=== PATIENT | female | born 1980 | race Hispanic/Latino ===

== ENCOUNTER 2019-07-27 08:25 | Outpatient (CLI) | payer OTHER | END 2019-07-27 08:26 | disposition home or self-care (01) | LOC: LABHHL 08:25 | PROVIDERS: ATTEND Surgery | DX: N63.0 Unspecified lump in unspecified breast (principal) | CPT/HCPCS: 88305 ==

== ENCOUNTER 2019-10-16 08:00 | Observation (INO) | payer BC ==
[2019-10-18] MEDS ORDERED: fentaNYL 100 MCG/2 ML INJ IV ONE (06:30)
[2019-10-18] MEDS ORDERED: LACTATED RINGERS 1,000 ML IV SCH ×2 (06:30→14:00)
[2019-10-18] MEDS ORDERED: ACETAMINOPHEN 500 MG TAB PO NR (06:30)
[2019-10-18] MEDS ORDERED: MAGNESIUM OXIDE 400 MG TAB PO NR (06:30)
[2019-10-18] MEDS ORDERED: CELECOXIB 200 MG CAP PO NR (06:30)
[2019-10-18] MEDS ORDERED: GABAPENTIN 300 MG CAP PO NR (06:30)
[2019-10-18] MEDS ORDERED: MIDAZOLAM 2 MG/2 ML INJ IV NR (06:30)
[2019-10-18] MEDS ORDERED: BUPIVACAINE-EPINEPHRINE/PF 0.25%-1:200,000 (30 ML) VIAL INFILTRATI ONE (07:08)
[2019-10-18] MEDS ORDERED: ceFAZolin/Water 2 GM/20 ML 2 GM/20 ML SYRINGE IV NR (07:10)
[2019-10-18] MEDS ORDERED: MIDAZOLAM 2 MG/2 ML INJ ONE (07:17)
[2019-10-18] MEDS ORDERED: ceFAZolin 1 GM VIAL IV ONE ×2 (09:13)
[2019-10-18] MEDS ORDERED: BACITRACIN 50,000 UNIT VIAL IR ONE ×2 (09:14)
[2019-10-18] MEDS ORDERED: GENTAMICIN 40 MG/ML VIAL 2 ML IV ONE (09:15)
[2019-10-18] MEDS ORDERED: WATER FOR IRRIG STERILE 1,500 ML BOTTLE IR ONE (09:22)
[2019-10-18] MEDS ORDERED: SODIUM CHLORIDE 0.9% IRR 1,500 ML BOTTLE IR ONE (09:22)
[2019-10-18] MEDS ORDERED: HYDROmorphone 2 MG TAB PO PRN (13:27)
[2019-10-18] MEDS ORDERED: METOCLOPRAMIDE 10 MG TAB PO PRN (13:27)
[2019-10-18] MEDS ORDERED: ONDANSETRON 4 MG/2 ML INJ IV PRN ×2 (13:27→15:34)
[2019-10-18] MEDS ORDERED: ACETAMINOPHEN 325 MG TAB PO PRN (13:27)
[2019-10-18] MEDS ORDERED: diphenhydrAMINE 25 MG CAP PO PRN (13:27)
[2019-10-18] MEDS ORDERED: oxyCODONE /ACETAMINOPHEN 5-325MG TAB PO PRN (13:27)
--- NOTE | 2019-10-18 13:27 | Operative Report ---
Operative Report Operative Report: Operative Report: Date of Service: October 18, 2019 Preoperative diagnosis: KAREEN positive gene mutation Postoperative diagnosis: Same Procedure: Bilateral nipple sparing mastectomy Surgeon: Lacey Griffiths M.D. Construction Recruiter: Norma Francisco D.O. Anesthesia: Gen. Findings: Bilateral nipple sparing mastectomy Complications: None Drains: per Plastic Surgery Estimated blood loss: 150 cc Disposition: Plastic surgery proceeded with bilateral implant placement Indications for operative procedure: This is a 39-year-old lady with KAREEN positive gene mutation with lifetime breast cancer risk up to 52%. She met with genetic counselor as well. Recommendations were to proceed with prophylactic bilateral mastectomy to decrease her breast cancer risk. She wished to proceed with immediate bilateral implant placement by plastic surgery. She wished to proceed with the above procedure. Procedure in detail: Anesthesia placed bilateral pectoral muscle block. The patient was taken to the operating room and was placed supine. Gen. anesthesia was administered. Bilateral chest and axillas were prepped and draped in the normal sterile operative fashion. Timeout was performed. Typical inframammary fold incisions were made for a bilateral nipple sparing mastectomy. Attention was taken toward the right breast first. A skin incision was made with a 10 blade knife at the inframmary fold with dissection taken to the pectoralis muscle. First began raising of the most posterior margin by breast tissue dissected free posteriorly from the pectoralis muscle with the aid of Bovie cautery and dissection taken superiorly to the clavicle, followed medially to sternum, followed inferiorly to the inframammary fold and laterally to the latissimus dorsi muscle. Once the posterior flap was raised posteriorly. Attention was then taken towards raising of the superior flap to the level of th e clavicle superiorly and taken posteriorly to the pectoralis muscle. Followed by raising of the medial flap to the level of the sternum and posteriorly to the pectoralis muscle. Followed by raising of the lateral flap to the level of the latissimus dorsi muscle and taken down posteriorly. Followed by raising of the inferior flap to the level of the inframammary fold taken posterior to the pectoralis muscle. The mastectomy/breast was removed from the pectoralis muscle without incident. The specimen was appropriately marked and sent to pathology. Hemostasis was obtained. The chest wall cavity was irrigated. Attention was then taken toward the left breast. A skin incision was made with a 10 blade knife at the inframmary fold with dissection taken to the pectoralis muscle. First began raising of the most posterior margin by breast tissue dissected free posteriorly from the pectoralis muscle with the aid of Bovie cautery and dissection taken superiorly to the clavicle, followed medially to sternum, followed inferiorly to the inframammary fold and laterally to the latissimus dorsi muscle. Once the posterior flap was raised posteriorly. Attention was then taken towards raising of the superior flap to the level of the clavicle superiorly and taken posteriorly to the pectoralis muscle. Followed by raising of the medial flap to the level of the sternum and posteriorly to the pectoralis muscle. Followed by raising of the lateral flap to the level of the latissimus dorsi muscle and taken down posteriorly. Followed by raising of the inferior flap to the level of the inframammary fold taken posterior to the pectoralis muscle. The mastectomy/breast was removed from the pectoralis muscle without incident. The specimen was appropriately marked and sent to pathology. Hemostasis was obtained. The chest wall cavity was irrigated. She tolerated surgery very well and plastic surgeon Dr. Connor then proceeded with bilateral implant placement.
[2019-10-18] MEDS ORDERED: fentaNYL 100 MCG/2 ML INJ IV PRN (13:29)
[2019-10-18 15:17] LABS: Hematocrit 30.8 % (30.3-42.9); Hemoglobin 8.9 gm/dl (10.1-14.3)
[2019-10-18] MEDS ORDERED: HYDROmorphone 1 MG/1 ML INJ IV PRN (15:34)
--- NOTE | 2019-10-18 15:36 | Post Anesthesia Evaluation ---
- Post Anesthesia Evaluation Patient Participated: Yes Airway Patent: Yes Stable Respiratory Function: Yes Nausea/Vomiting: No Temp > 96.8F: Yes Pain Manageable: Yes Adequeate Hydration: Yes Anesthesia Complications: No Block Receding Appropriately: Yes Patient on Ventilator: No Other Comments: Pt has low baseline blood pressure preop and is low postop. Stable.
[2019-10-18] MEDS ORDERED: ceFAZolin/NS 1 GM/50 ML 1 GM/50 ML BAG IV SCH (18:00)
[2019-10-18] MEDS ORDERED: DOCUSATE SODIUM 100 MG CAP PO SCH (22:00)
== END 2019-10-18 23:59 | disposition home or self-care (01) ==
LOC: EDSTATUS 08:00 → OR 10-18 06:52 → 3A 10-18 07:00
PROVIDERS: ADMIT Surgery; ATTEND Surgery
DX: Z15.01 Genetic susceptibility to malignant neoplasm of breast (principal); Z15.89 Genetic susceptibility to other disease; N60.81 Other benign mammary dysplasias of right breast; Z80.3 Family history of malignant neoplasm of breast
CPT/HCPCS: 36415; 85014; 85018; 88307; 96374; 96375; G0378; G0379; J0690; J1580; J2250; 88309

== ENCOUNTER 2019-10-18 06:55 | Observation (INO) | payer BC ==
--- NOTE | 2019-10-16 08:55 | Anesthesia Consultation ---
Anesthesia Consult and Med Hx Date of service: 10/18/19 - Airway Anesthetic Teeth Evaluation: Bridges ROM Head & Neck: Adequate Mental/Hyoid Distance: Adequate Mallampati Class: Class II Intubation Access Assessment: Good - Pre-Operative Health Status ASA Pre-Surgery Classification: ASA2 Proposed Anesthetic Plan: General Nerve Block: PECs - Pulmonary Hx Smoking: Yes (FORMER-6CIG/DAY FOR 10 YRS; QUIT 2016) - Central Nervous System Hx Psychiatric Problems: No - Gastrointestinal Hx Gastroesophageal Reflux Disease: No (Ulcerative Colitis-was on prednisone) - Hematic Hx Anemia: Yes (ON PO IRON) - Other Systems Hx Alcohol Use: Yes (2/MONTH) Hx Substance Use: No Hx Cancer: No
[~2019-10-18 06:55] MED LIST: ACETAMINOPHEN 500 MG TAB PO NR; CELECOXIB 200 MG CAP PO NR; GABAPENTIN 300 MG CAP PO NR; LACTATED RINGERS 1,000 ML IV SCH; MAGNESIUM OXIDE 400 MG TAB PO NR; MIDAZOLAM 2 MG/2 ML INJ IV NR; ceFAZolin/Water 2 GM/20 ML 2 GM/20 ML SYRINGE IV NR; fentaNYL 100 MCG/2 ML INJ IV NR
[2019-10-18] MEDS ORDERED: LIDOCAINE (1%) 10 MG/1 ML VIAL 20 ML MDV ONE (07:16)
[2019-10-18] MEDS ORDERED: ONDANSETRON 4 MG/2 ML INJ IV PRN ×2 (07:25→14:14)
[2019-10-18] MEDS ORDERED: HYDROmorphone 1 MG/1 ML INJ IV PRN (07:25)
--- NOTE | 2019-10-18 07:25 | Anesthesia Day of Surgery ---
Anesthesia Day of Surgery - Day of Surgery Patient Examined: Yes Patient H&P Reviewed: Yes Patient is NPO: Yes
[2019-10-18] MEDS ORDERED: fentaNYL 100 MCG/2 ML INJ ONE (07:34)
[2019-10-18] MEDS ORDERED: ePHEDrine SULFATE 50 MG/1 ML INJ ONE (07:34)
[2019-10-18] MEDS ORDERED: propofoL 200 MG/20 ML VIAL IV ONE (07:35)
[2019-10-18] MEDS ORDERED: NEOSTIGMINE 10MG/10 ML INJ MDV ONE (07:43)
[2019-10-18] MEDS ORDERED: SUCCINYLCHOLINE CHLORIDE 200 MG/10 ML INJ MDV ONE (07:43)
[2019-10-18] MEDS ORDERED: ONDANSETRON 4 MG/2 ML INJ ONE (07:43)
[2019-10-18] MEDS ORDERED: dexAMETHasone 20 MG/5 ML VIAL ONE (07:43)
[2019-10-18] MEDS ORDERED: GLYCOPYRROLATE 0.4 MG/2 ML INJ ONE (07:43)
[2019-10-18] MEDS ORDERED: LIDOCAINE MPF (2%) 20 MG/1 ML VIAL 5 ML ONE (07:43)
[2019-10-18] MEDS ORDERED: PHENYLEPHRINE/NS 1,000 MCG/10 ML SYRINGE (OR USE) IV ONE (07:43)
[2019-10-18] MEDS ORDERED: ROCURONIUM 50 MG/5 ML INJ IV ONE (07:43)
[2019-10-18] MEDS ORDERED: GENTAMICIN 40 MG/ML VIAL 2 ML ONE (08:21)
[2019-10-18] MEDS ORDERED: ceFAZolin 1 GM VIAL ONE (08:21)
[2019-10-18] MEDS ORDERED: BACITRACIN 50,000 UNIT VIAL ONE (08:22)
[2019-10-18] MEDS ORDERED: SODIUM CHLORIDE P/F VIAL 10 ML 20 ML ONE (08:22)
--- NOTE | 2019-10-18 08:48 | Progress Note ---
Regional Anesthesia Block - Regional Anesthesia Block Start Time: 07:32 Stop Time: 07:41 Performed By:: JUSTO KAMARA Procedure: Bilateral PEC Block with Ultrasound Pt Id, consent, time out; performed. Pt on monitor, VSS stable, sedation given per pre-op RN. Sterile prep and drape. Left side Landmarks Identified with ultrasound. 3cc 1% lido skin wheel. Needle advance in plane, 15cc .25% bupivacaine injected intimately with negatives aspiration. Pt tolerated procedure will, VSS stable. Right side Landmarks Identified with ultrasound. 3cc 1% lido skin wheel. Needle advance in plane, 15cc .25% bupivacaine injected intimately with negatives aspiration. Pt tolerated procedure will, VSS stable.
[2019-10-18] MEDS ORDERED: ALBUMIN HUMAN 5% (12.5 GM/250 ML) INJ IV ONE (12:41)
[2019-10-18] MEDS ORDERED: HYDROmorphone 1 MG/1 ML INJ ONE ×2 (12:48→13:21)
[2019-10-18] MEDS ORDERED: LACTATED RINGERS 3,000 ML ONE (13:21)
[2019-10-18] MEDS ORDERED: oxyCODONE /ACETAMINOPHEN 5-325MG TAB PO PRN (14:14)
[2019-10-18] MEDS ORDERED: METOCLOPRAMIDE 10 MG TAB PO PRN (14:14)
[2019-10-18] MEDS ORDERED: ACETAMINOPHEN 325 MG TAB PO PRN (14:14)
[2019-10-18] MEDS ORDERED: diphenhydrAMINE 25 MG CAP PO PRN (14:14)
[2019-10-18] MEDS ORDERED: fentaNYL 100 MCG/2 ML INJ IV PRN (14:19)
--- NOTE | 2019-10-18 14:21 | Operative Report ---
Operative Report Operative Report: Operative Report: Date of Service: October 18, 2019 Preoperative diagnosis: KAREEN positive gene mutation Postoperative diagnosis: Same Procedure: Bilateral nipple sparing mastectomy Surgeon: Lacey Griffiths M.D. Tomography Technologist: Norma Francisco D.O. Anesthesia: Gen. Findings: Bilateral nipple sparing mastectomy Complications: None Drains: per Plastic Surgery Estimated blood loss: 150 cc Disposition: Plastic surgery proceeded with bilateral implant placement Indications for operative procedure: This is a 39-year-old lady with KAREEN positive gene mutation with lifetime breast cancer risk up to 52%. She met with genetic counselor as well. Recommendations were to proceed with prophylactic bilateral mastectomy to decrease her breast cancer risk. She wished to proceed with immediate bilateral implant placement by plastic surgery. She wished to proceed with the above procedure. Procedure in detail: Anesthesia placed bilateral pectoral muscle block. The patient was taken to the operating room and was placed supine. Gen. anesthesia was administered. Bilateral chest and axillas were prepped and draped in the normal sterile operative fashion. Timeout was performed. Typical inframammary fold incisions were made for a bilateral nipple sparing mastectomy. Attention was taken toward the right breast first. A skin incision was made with a 10 blade knife at the inframmary fold with dissection taken to the pectoralis muscle. First began raising of the most posterior margin by breast tissue dissected free posteriorly from the pectoralis muscle with the aid of Bovie cautery and dissection taken superiorly to the clavicle, followed medially to sternum, followed inferiorly to the inframammary fold and laterally to the latissimus dorsi muscle. Once the posterior flap was raised posteriorly. Attention was then taken towards raising of the superior flap to the level of th e clavicle superiorly and taken posteriorly to the pectoralis muscle. Followed by raising of the medial flap to the level of the sternum and posteriorly to the pectoralis muscle. Followed by raising of the lateral flap to the level of the latissimus dorsi muscle and taken down posteriorly. Followed by raising of the inferior flap to the level of the inframammary fold taken posterior to the pectoralis muscle. The mastectomy/breast was removed from the pectoralis muscle without incident. The specimen was appropriately marked and sent to pathology. Hemostasis was obtained. The chest wall cavity was irrigated. Attention was then taken toward the left breast. A skin incision was made with a 10 blade knife at the inframmary fold with dissection taken to the pectoralis muscle. First began raising of the most posterior margin by breast tissue dissected free posteriorly from the pectoralis muscle with the aid of Bovie cautery and dissection taken superiorly to the clavicle, followed medially to sternum, followed inferiorly to the inframammary fold and laterally to the latissimus dorsi muscle. Once the posterior flap was raised posteriorly. Attention was then taken towards raising of the superior flap to the level of the clavicle superiorly and taken posteriorly to the pectoralis muscle. Followed by raising of the medial flap to the level of the sternum and posteriorly to the pectoralis muscle. Followed by raising of the lateral flap to the level of the latissimus dorsi muscle and taken down posteriorly. Followed by raising of the inferior flap to the level of the inframammary fold taken posterior to the pectoralis muscle. The mastectomy/breast was removed from the pectoralis muscle without incident. The specimen was appropriately marked and sent to pathology. Hemostasis was obtained. The chest wall cavity was irrigated. She tolerated surgery very well and plastic surgeon Dr. Connor then proceeded with bilateral implant placement.
[2019-10-18] MEDS ORDERED: LACTATED RINGERS 1,000 ML IV SCH (15:00)
[2019-10-18] MEDS ORDERED: LACTATED RINGERS 1,000 ML ONE ×2 (15:10→16:47)
[2019-10-18] MEDS ORDERED: BACITRACIN ZINC OINT 28.4 GM TP ONE (16:00)
[2019-10-18] MEDS: ceFAZolin/NS 1 GM/50 ML 1 GM/50 ML BAG IV SCH (21:40)
[2019-10-18] MEDS: DOCUSATE SODIUM 100 MG CAP PO SCH (21:48)
[2019-10-18] MEDS: HYDROmorphone 2 MG TAB PO PRN (21:48)
[2019-10-19] MEDS: HYDROmorphone 2 MG TAB PO PRN (03:44)
[2019-10-19] MEDS ORDERED: KETOROLAC 10 MG TAB PO PRN (06:47)
[2019-10-19] MEDS: ceFAZolin/NS 1 GM/50 ML 1 GM/50 ML BAG IV SCH (07:03)
--- NOTE | 2019-10-19 07:24 | Progress Note ---
Assessment and Plan This is a 39 year old lady with KAREEN positive gene mutation, POD#1 bilateral nipple sparing mastectomy with immediate implant placement. 1. Pain with some pain issues overnight and toradol prn will be started this morning. Patient with baseline lower blood pressure that has remained stable postoperative. 2. Bilateral chest incisions healing well, skin and nipples well perfused. 3. MEET drain education. 4. OOB to hallway. 5. D/C planning for later today once pain in better control. Discomfort given implants in place. Subjective Date of service: 10/19/19 Principal diagnosis: KAREEN positive gene mutation Interval history: POD#1 bilateral nipple sparing mastectomy with immediate implant placement Objective - Constitutional Vitals: Vital Signs - 12hr 10/19/19 01:44 Temperature 99.1 F Pulse Rate 71 Respiratory 18 Rate Blood Pressure 95/60 O2 Sat by Pulse 98 Oximetry General appearance: Present: no acute distress - EENT Eyes: PERRL, EOM intact ENT: hearing intact, clear oral mucosa, dentition normal Ears: bilateral: normal - Neck Neck: supple, normal ROM - Respiratory Respiratory effort: normal - Breasts Breasts: other (bilateral chest incisions c/d/i; skin well perfused; nipples well perfused; MEET drains to bulb suction; no hematoma) - Cardiovascular Rhythm: regular Extremities: no ischemia, pulses intact, pulses symmetrical, No edema, normal temperature, normal color, Full ROM - Gastrointestinal General gastrointestinal: Present: soft, non-tender, non-distended Rectal Exam: deferred - Genitourinary Female genitourinary: deferred - Integumentary Integumentary: clear, warm, dry - Musculoskeletal Musculoskeletal: strength equal bilaterally - Psychiatric Psychiatric: appropriate mood/affect, intact judgment & insight, memory intact, cooperative Medications & Allergies - Medications Allergies/Adverse Reactions: Allergies morphine Allergy (Verified 10/05/19 11:18) 2 red lines at IV site 30min after injection Home Medications: Home Medications Medication Instructions Recorded Confirmed Last Taken Type Ferrous Sulfate [Feosol] 325 mg PO QDAY 10/05/19 10/05/19 10/16/19 09:00 History Active Medications: Generic Name Dose Route Start Last Admin Trade Name Freq PRN Reason Stop Dose Admin Acetaminophen 650 mg 10/18/19 14:14 Tylenol PO Q6H PRN Pain MILD(1-3)/Fever >100.5/MENDEZ Diphenhydramine HCl 25 mg 10/18/19 14:14 Benadryl PO Q8H PRN Itching Docusate Sodium 100 mg 10/18/19 22:00 10/18/19 21:48 Colace PO Not Given BID JUSTICE Fentanyl 50 mcg 10/18/19 14:19 Sublimaze IV ONCE PRN Pain , Severe (7-10) Hydromorphone HCl 2 mg 10/18/19 14:14 10/19/19 03:44 Dilaudid PO 2 mg Q6H PRN Administration Pain , Severe (7-10) Lactated Ringer's 1,000 mls @ 125 mls/hr 10/18/19 06:00 Lactated Ringers IV DIRECT JUSTICE Lactated Ringer's 1,000 mls @ 125 mls/hr 10/18/19 15:00 Lactated Ringers IV DIRECT JUSTICE Cefazolin Sodium 1 gm in 50 mls @ 100 mls/hr 10/18/19 22:00 10/19/19 07:03 Ancef/Ns 1 Gm/50 Ml IV 100 mls/hr Q8HR JUSTICE Administration Protocol Ketorolac Tromethamine 10 mg 10/19/19 06:47 Toradol PO 10/24/19 06:46 Q6H PRN Pain, Mild (1-3) Metoclopramide HCl 10 mg 10/18/19 14:14 Reglan PO Q6H PRN Nausea And Vomiting Ondansetron HCl 4 mg 10/18/19 14:14 Zofran IV Q8H PRN N/V unrelieved by Reglan Oxycodone/Acetaminophen 1 tab 10/18/19 14:14 10/19/19 00:09 Percocet 5/325 PO 1 tab Q6H PRN Administration Pain, Moderate (4-6) Sodium Chloride 10 ml 10/18/19 14:14 Sodium Chloride Flush Syringe 10 Ml IV PRN PRN LINE FLUSH
[2019-10-19 09:25] VITALS: BP 94/60
[2019-10-19] MEDS: DOCUSATE SODIUM 100 MG CAP PO SCH (09:34)
== END 2019-10-19 13:50 | disposition home or self-care (01) ==
LOC: OR 06:55 → OB 14:14
PROVIDERS: ADMIT Surgery; ATTEND Surgery
DX: Z03.818 Encounter for observation for suspected exposure to other biological agents ruled out (principal); Z15.01 Genetic susceptibility to malignant neoplasm of breast
CPT/HCPCS: 19303; 19340; 64450; 96365; 96366; C1789; G0378; J0330; J0690; J1100; J1170; J2250; J2370; J2405; J2704; J2710; J3010; J7120; P9045; Q4128; U0003; J1580

== ENCOUNTER 2019-10-26 12:48 | Outpatient (CLI) | payer BC | END 2019-10-26 12:49 | disposition home or self-care (01) | LOC: WOUND 12:48 | PROVIDERS: ATTEND Surgery | DX: M79.89 Other specified soft tissue disorders (principal); Z96.89 Presence of other specified functional implants | CPT/HCPCS: 99215; G0463 ==

== ENCOUNTER 2019-10-30 12:53 | Outpatient (CLI) | payer BC | END 2019-10-30 12:54 | disposition home or self-care (01) | LOC: WOUND 12:53 | PROVIDERS: ATTEND Surgery | DX: T86.821 Skin graft (allograft) (autograft) failure (principal); C50.919 Malignant neoplasm of unspecified site of unspecified female breast; R73.09 Other abnormal glucose; Z80.3 Family history of malignant neoplasm of breast; Y83.2 Surgical operation with anastomosis, bypass or graft as the cause of abnormal reaction of the patient, or of later complication, without mention of misadventure at the time of the procedure | CPT/HCPCS: 82962; G0277; 99183 ==

== ENCOUNTER 2019-10-31 13:03 | Outpatient (CLI) | payer BC | END 2019-10-31 13:04 | disposition home or self-care (01) | LOC: WOUND 13:03 | PROVIDERS: ATTEND Surgery | DX: M79.89 Other specified soft tissue disorders (principal); Z96.89 Presence of other specified functional implants | CPT/HCPCS: 99183; G0277 ==

== ENCOUNTER 2019-11-02 12:59 | Outpatient (CLI) | payer BC | END 2019-11-02 13:00 | disposition home or self-care (01) | LOC: WOUND 12:59 | PROVIDERS: ATTEND Surgery | DX: T86.828 Other complications of skin graft (allograft) (autograft) (principal); T85.898D Other specified complication of other internal prosthetic devices, implants and grafts, subsequent encounter; Y83.2 Surgical operation with anastomosis, bypass or graft as the cause of abnormal reaction of the patient, or of later complication, without mention of misadventure at the time of the procedure | CPT/HCPCS: 99183; G0277 ==